=== PATIENT | female | born 1960 | race Caucasian/White ===

== ENCOUNTER 2017-05-09 10:09 | Emergency (ER) | payer BC ==
[~2017-05-09] VITALS: Ht 167.6 cm; Wt 74.3 kg
[2017-05-09 11:45] LABS: ADD MIUA? YES; BILIRUBIN NEGATIVE; BLOOD NEGATIVE; COLOR YELLOW ((YELLOW)); GLUCOSE (STRIP) NEGATIVE; KETONES NEGATIVE; LEUKOCYTES LARGE; NITRITE NEGATIVE; PROTEIN (STRIP) 30; SPECIFIC GRAVITY 1.015 (1.000-1.030); UROBILINOGEN 0.2 MG/DL (0.2-1.0)
[2017-05-09] MEDS ORDERED: ONDANSETRON ODT4 MG PO (11:57)
[2017-05-09] MEDS ORDERED: NORCO 7.5/321 TABLET PO (11:57)
[2017-05-09 12:12] VITALS: BP 136/85
[2017-05-09 12:16] LABS: BACTERIA NONE SEEN /HPF; EPITHELIAL CELLS 1+ /HPF; MUCUS TRACE /LPF; UCUL ADDED? YES; WHITE BLOOD CELLS 30-40 /HPF (0-5)
== END 2017-05-09 12:13 | disposition home or self-care (01) ==
LOC: EME 10:09
PROVIDERS: Emergency Medicine
DX: S32.018A Other fracture of first lumbar vertebra, initial encounter for closed fracture (principal); S30.0XXA Contusion of lower back and pelvis, initial encounter; W10.8XXA Fall (on) (from) other stairs and steps, initial encounter; Y93.89 Activity, other specified; Y92.008 Other place in unspecified non-institutional (private) residence as the place of occurrence of the external cause; Z88.6 Allergy status to analgesic agent
CPT/HCPCS: 72100; 72220; 73522; 81003; 87086; 99281; 99284

== ENCOUNTER 2017-11-12 07:02 | Emergency (ER) | payer BC ==
[~2017-11-12] VITALS: Ht 167.6 cm; Wt 78.0 kg
[~2017-11-12 07:02] MED LIST: NORCO 7.5/321 TABLET PO; ONDANSETRON ODT4 MG PO
[2017-11-12 07:59] LABS: HEMATOCRIT 43.4 % (36.0-46.0); HEMOGLOBIN 14.9 G/DL (11.9-15.5); MCH 31.8 PG (29.0-34.0); MCHC 34.3 G/DL (30.0-36.0); MCV 92.7 FL (83-99); PLATELET COUNT 290 K/uL (156-360); RBC DIS.WIDTH-CV 13.2 % (11.8-14.6); RBC DIS.WIDTH-SD 44.6 % (39-53); RED BLOOD COUNT 4.68 M/uL (3.80-5.20); WHITE BLOOD COUNT 10.5 K/uL (4.1-10.2)
[2017-11-12 08:11] LABS: CHLORIDE 106 mEq/L (99-109); POTASSIUM 4.1 mEq/L (3.7-5.4); SODIUM 141 mEq/L (136-147)
[2017-11-12 08:12] LABS: MAGNESIUM 2.1 mg/dL (1.3-2.7)
[2017-11-12 08:13] LABS: GLUCOSE 118 mg/dL (70-99)
[2017-11-12 08:16] LABS: CREATININE 0.8 mg/dL (0.6-1.3); GFR ESTIMATE (CALCULATED) > 59 mL/min/
[2017-11-12 08:17] LABS: UREA NITROGEN (BUN) 20 mg/dL (9-23)
[2017-11-12 08:20] LABS: TROP-I INTERPRETATION NEGATIVE; TROPONIN-I 0.02 ng/mL (0.0-0.30)
[2017-11-12 09:51] VITALS: BP 122/78
== END 2017-11-12 09:57 | disposition home or self-care (01) ==
LOC: EME 07:02
PROVIDERS: Emergency Medicine
DX: R00.2 Palpitations (principal); R94.31 Abnormal electrocardiogram [ECG] [EKG]; I10 Essential (primary) hypertension; Z88.6 Allergy status to analgesic agent
CPT/HCPCS: 71046; 80048; 83735; 84484; 85027; 93005; 99281; 99284